=== PATIENT | female | born 1985 | race Native Hawaiian/Other Pacific Islander ===

== ENCOUNTER 2021-02-16 08:05 | Outpatient (CLI) | payer OTHER | END 2021-02-16 18:56 | disposition home or self-care (01) | LOC: US 08:05 | PROVIDERS: ATTEND Nurse Practitioner Family | DX: E28.2 Polycystic ovarian syndrome (principal) ==

== ENCOUNTER 2022-04-23 12:43 | Outpatient (CLI) | payer OTHER | END 2022-04-23 21:37 | disposition home or self-care (01) | LOC: RAD 12:43 | PROVIDERS: ATTEND Nurse Practitioner Primary Care | DX: M25.551 Pain in right hip (principal) ==